=== PATIENT | female | born 1985 | race Caucasian/White ===

== ENCOUNTER 2021-07-23 00:13 | Day surgery (SDC) | payer OTHER, SELFPAY ==
[2021-07-10 14:52] VITALS: BMI 24.0
[2021-07-23 10:15] VITALS: BP 123/81; PULSE 113; RESP 20; TEMP 36.3; O2SAT 99
--- NOTE | 2021-07-23 10:20 | WPDANESEPPF ---
Anes - Initial Pre Proc Eval Procedure: Operation Date: 07/23/21 11:30 Proposed Procedures p Colonoscopy - Preston Bellamy MD Date/Time: 07/23/21 10:20 Surgeon: Preston Bellamy MD Pre Op Diagnosis: abdominal pain Patient Data Age: 35 Gender: F Height: 1.75 m Weight: 70.8 kg Last Vital Signs Temp 36.3 C L 07/23/21 10:15 Pulse 113 H 07/23/21 10:15 Resp 20 07/23/21 10:15 BP 123/81 07/23/21 10:15 Pulse Ox 99 07/23/21 10:15 Allergies Allergy/AdvReac Type Severity Reaction Status Date / Time No Known Allergies Allergy Verified 07/23/21 10:11 Home Medications Medication Instructions Recorded Confirmed Type venlafaxine 1 mg PO DAILY 07/10/21 07/10/21 History Patient hx anesthesia problems: none Family hx anesthesia problems: none Results Review: All pre-operative results and documents have been reviewed as part of the pre-operative evaluation. [facility] Past Medical History Medical History Anxiety Blood in stool Colitis IBS (irritable bowel syndrome) Mucus in stool Surgical History Surgical History (Updated 07/23/21 @ 10:20 by Adalberto Gonsalez MD) H/O colonoscopy Hx of tonsillectomy Social History Social History Smoking status: Never smoker Alcohol intake: never Alcohol use details: social Substance use: current Substance use type: marijuana Other substance usage details: VAPES MARIJUANA Living arrangements: with family Spiritual care concerns: No Anes - Eval Final PreProcedure Day of Procedure 07/23/21 10:20 Patient weight: normal Heart: regular rate and rhythm Lungs: clear to auscultation Airway: Mallampati scale class II Neurological: alert and oriented Last oral intake: >/= 8 hours ASA classification: II Emergent: no Anesthetic plan: proceed Anesthesia type and monitoring: general GIVS and standard monitoring Results Review: All pre-operative results and documents have been reviewed as part of the pre-operative evaluation. Informed Consent: The patient's anesthetic plan and its attendant risks and benefits were discussed with the patient/family/POA. Questions were solicited and answers provided to the satisfaction of the patient/family/POA.
[2021-07-23] MEDS: LACTATED RINGERS 1,000 ML 150 ML IV CONT (10:26)
--- NOTE | 2021-07-23 10:54 | PM.HPGS ---
History of Present Illness History of Present Illness Consent: Risks, benefits, and alternatives have been discussed and questions answered. Patient agrees to proceed with procedure. Chief complaint: abdominal pain Narrative: Karen Reynoso is a 35 year old female with abdominal discomfort and mucus in stool, had cecal ulcer in 2009 Review of Systems Constitutional: Constitutional: Denies headache(s) and Denies weakness Eyes: Eyes: Denies blurry vision ENT: Reports Normal hearing present, Denies headache(s) and Denies neck pain Cardiovascular: Cardiovascular: Denies chest pain and Denies dyspnea Respiratory: Respiratory: Denies dyspnea Gastrointestinal: Gastrointestinal: Reports no additional gastrointestinal complaints Genitourinary: Genitourinary: Denies dysuria Musculoskeletal: Musculoskeletal: Denies neck pain Integumentary/Breasts: Skin/Breast: Denies dry skin Neurologic: Reports Normal hearing present, Denies headache(s) and Denies weakness Psychiatric: Psychiatric: Denies anxiety Endocrine: Endocrine: Denies change in body appearance Hematologic/Lymphatic: Hematologic/Lymphatic: Denies easy bleeding Allergic/Immunologic: Allergic/Immunologic: Denies urticaria PMFSH Past Medical History Medical History (Updated 07/23/21 @ 10:54 by Preston Bellamy MD) Anxiety Blood in stool Colitis IBS (irritable bowel syndrome) Mucus in stool Surgical History Surgical History (Updated 07/23/21 @ 10:20 by Adalberto Gonsalez MD) H/O colonoscopy Hx of tonsillectomy Social History Social History Smoking status: Never smoker Alcohol intake: never Alcohol use details: social Substance use: current Substance use type: marijuana Other substance usage details: VAPES MARIJUANA Living arrangements: with family Spiritual care concerns: No Meds Home Medications and Allergies Home Medications Medication Instructions Recorded Confirmed Type venlafaxine 1 mg PO DAILY 07/10/21 07/10/21 History Allergies Allergy/AdvReac Type Severity Reaction Status Date / Time No Known Allergies Allergy Verified 07/23/21 10:11 Vital Signs Vital Signs - 24 hr 07/23/21 10:15 Temperature 97.4 F L Pulse Rate 113 H Respiratory Rate 20 Blood Pressure 123/81 Pulse Oximetry 99 Exam Const: General: comfortable and no acute distress HENMT: General nose exam: Normal nares present Eyes: General: appearance normal, both eyes and all related structures Neck: Neck: no JVD Resp: Auscultation: clear to auscultation bilaterally Cardio: Rate: regular rate Rhythm: regular rhythm GI: Inspection: non-distended GI Palp: Yes Soft to palpation Skin: General skin exam: normal color Neuro: General: gait normal Speech: normal speech Extrem: General: normal to inspection Psych: Mental Status: mental status grossly normal Assessment and Plan Assessment and plan (1) Mucus in stool: Code(s): R19.5 - Other fecal abnormalities Status: Acute Assessment and Plan: will assess with colonoscopy, consider to get random colon bx (2) IBS (irritable bowel syndrome): Code(s): K58.9 - Irritable bowel syndrome without diarrhea Status: Acute
[2021-07-23 11:12] VITALS: BP 88/61; PULSE 82; RESP 13; O2SAT 98
[2021-07-23 11:22] VITALS: BP 88/63; PULSE 93; RESP 21; O2SAT 100
[2021-07-23 11:32] VITALS: BP 103/73; PULSE 76; RESP 24; O2SAT 100
== END 2021-07-23 11:52 | disposition home or self-care (01) ==
PROVIDERS: PCP Family Medicine; Visit Provider Internal Medicine Gastroenterology
PROC: 0DJD8ZZ Inspection of Lower Intestinal Tract, Via Natural or Artificial Opening Endoscopic (ICD-10-PCS; CPT 45378; principal; 2021-07-23 11:30)
DX: R10.30 Lower abdominal pain, unspecified (principal); R19.5 Other fecal abnormalities; K63.89 Other specified diseases of intestine; K58.9 Irritable bowel syndrome, unspecified; F41.9 Anxiety disorder, unspecified; F12.90 Cannabis use, unspecified, uncomplicated
CPT/HCPCS: 45380; 88305; J2704; J7120

== ENCOUNTER 2022-10-07 08:33 | Emergency (ER) | payer OTHER, SELFPAY ==
[2022-10-07 08:48] VITALS: BP 119/86; PULSE 99; RESP 18; TEMP 36.7; O2SAT 99
[2022-10-07 09:10] LABS: Appearance Urine Clear (Clear); Bacteria Urine None Seen /hpf; Bilirubin Urine Negative (Negative); Blood Urine 1+ (Negative); Color Urine Yellow (Yellow); Glucose Urine UA Negative (Negative); Ketones Urine Negative (Negative); Leukocyte Esterase Ur Negative LEU/UL (Negative); Nitrate Urine Negative (Negative); Non Pathogenic Casts 0-2; Protein Urine Negative (Negative); Squamous Epithelial Cell Urine None seen /hpf (Few); Urobilinogen Urine 0.2 mg/dL (<2.0); WBC Urine 0-5 /hpf; pH Urine 5.5 (5.0-9.0)
[2022-10-07 09:12] LABS: Add Urine Microscopic? YES
[2022-10-07 09:16] LABS: Alanine Aminotransferase 15 U/L (6-35); Albumin Level 4.3 g/dL (3.5-5.1); Alkaline Phosphatase 59 U/L (38-126); Anion Gap 7 mmol/L (8-16); Aspartate Amino Transferase 25 U/L (14-36); Bilirubin,Total 2.3 mg/dL (0.2-1.3); Blood Urea Nitrogen 8 mg/dL (7-17); Calcium 8.8 mg/dL (8.4-10.2); Carbon Dioxide 26 mmol/L (22-30); Chloride 103 mmol/L (98-107); Estimated CRCL calculation 101 ml/min; Estimated Glomerular Filt Rate > 60; Glucose 102 mg/dL (65-110); Potassium 3.7 mmol/L (3.4-5.0); Sodium 136 mmol/L (137-145)
[2022-10-07 09:25] LABS: Basophils Percent Auto 0.4 % (0.2-1.2); Eosinophils Percent Auto 0.4 % (0-4.4); Hematocrit 39.8 % (37.0-47.0); Hemoglobin 12.9 g/dL (12.0-15.0); Immature Granulocyte Absolute 0.01 K/mm3 (0.00-0.031); Immature Granulocyte Percent A 0.1 % (0-0.5); Lymphocytes Absolute Auto 0.76 K/mm3 (0.9-3.2); Lymphocytes Percent Auto 10.3 % (18.3-44.2); Mean Corpuscular HGB Conc 32.4 g/dl (32-36); Mean Corpuscular Hemoglobin 29.4 pg (26-34); Mean Corpuscular Volume 90.7 fl (80-100); Mean Platelet Volume 9.9 fl (7.4-10.4); Monocytes Absolute Auto 0.3 K/mm3 (0.1-0.6); Monocytes Percent Auto 3.8 % (2.6-8.5); Neutrophils Absolute Auto 6.2 K/mm3 (1.3-6.7); Platelet Count Result 219 k/mm3 (150-375); Red Blood Count 4.39 M/mm3 (4.2-5.4); Red Cell Distribution Width 13.5 % (11.5-14.5); White Blood Count 7.4 K/mm3 (4.5-10.0)
--- NOTE | 2022-10-07 10:27 | ED.GENADULT ---
HPI - General Adult General Chief complaint: Unspecified Stated complaint: diarrhea, chills, abdominal pain Time Seen by Provider: 10/07/22 08:38 History of Present Illness HPI narrative: Patient is a 36-year-old female who presents ER with 2 concerns. First concern is 5 days ago patient went on a cruise and removed a tampon and it shredded. She believes there is some retained tampon within her vagina. She has no vaginal bleeding or vaginal discharge. No pelvic pain. No dysuria or urinary frequency or urgency. Additionally patient began having diarrhea today that has caused her to be incontinent of the stool. There is no blood in the stool. No fevers or chills or sweats. No abdominal pain but will get some cramping prior to going to the bathroom. 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 Related Data Home Medications Medication Instructions Recorded Confirmed venlafaxine 75 mg capsule,extended 1 mg PO DAILY 07/10/21 07/10/21 release 24 hr Allergies Allergy/AdvReac Type Severity Reaction Status Date / Time No Known Allergies Allergy Verified 10/07/22 08:52 Review of Systems Review of Systems: All systems reviewed & are unremarkable except as noted in HPI and below Constitutional: Constitutional: Denies chills and Denies fever(s) Gastrointestinal: Gastrointestinal: Denies abdominal pain, Reports GI cramping, Reports diarrhea, Denies nausea and Denies vomiting Genitourinary: Genitourinary: Denies abnormal vaginal bleeding, Denies nocturia, Denies dysuria, Denies pelvic pain, Denies vaginal discharge and Denies vaginal odor PMFSH Past Medical History Medical History (Updated 10/07/22 @ 10:28 by Rigoberto Baer MD) Anxiety Blood in stool Colitis IBS (irritable bowel syndrome) Mucus in stool Surgical History Surgical History (Updated 07/23/21 @ 10:20 by Adalberto Gonsalez MD) H/O colonoscopy Hx of tonsillectomy Social History Social History Smoking status: Never smoker Alcohol intake: never Alcohol use details: social Substance use: current Substance use type: marijuana Other substance usage details: VAPES MARIJUANA Living arrangements: with family Spiritual care concerns: No Exam Narrative: GENERAL: Well-appearing, well-nourished, and in no acute distress. HEAD: Normocephalic, atraumatic. CHEST: Clear to auscultation. No respiratory distress. HEART: Regular rate and rhythm. Normal peripheral pulses. ABDOMEN: Soft, nontender, nondistended. : Normal external genitalia, cervix normal appearance, no retained foreign body, scant physiologic discharge no vaginal bleeding. EXTREMITIES: Normal range of motion. No edema. SKIN: Warm, dry, no rash. NEURO: Alert and oriented x3. PSYCH: Normal mood and affect. Course Course Emergency Course: Patient resting comfortably. No retained foreign body. Discussed conservative treatment plan and patient verbalized understanding. Vital Signs Vital signs: Vital Signs Temperature 98.1 F 10/07/22 08:48 Pulse Rate 99 10/07/22 08:48 Respiratory Rate 18 10/07/22 08:48 Blood Pressure 119/86 10/07/22 08:48 Pulse Oximetry 99 10/07/22 08:48 Oxygen Delivery Room Air 10/07/22 08:48 Temperature 98.1 F 10/07/22 08:48 Pulse Rate 90 10/07/22 10:37 Respiratory Rate 16 10/07/22 10:37 Blood Pressure 129/74 10/07/22 10:37 Pulse Oximetry 97 10/07/22 10:37 Oxygen Delivery Room Air 10/07/22 08:48 Medical Decision Making Vital Signs Vital Signs: Vital Signs Temperature 98.1 F 10/07/22 08:48 Pulse Rate 99 10/07/22 08:48 Respiratory Rate 18 10/07/22 08:48 Blood Pressure 119/86 10/07/22 08:48 Pulse Oximetry 99 10/07/22 08:48 Oxygen Delivery Room Air 10/07/22 08:48 Temperature 98.1 F 10/07/22 08:48 Pulse Rate 90 10/07/22 10:37 Respiratory Rate 16 10/07/22 10:37 Blood Pressure 129/74
[2022-10-07 10:37] VITALS: BP 129/74; PULSE 90; RESP 16; O2SAT 97
== END 2022-10-07 10:39 | disposition home or self-care (01) ==
PROVIDERS: Emergency Provider Emergency Medicine; PCP Family Medicine
DX: K52.9 Noninfective gastroenteritis and colitis, unspecified (principal); K58.9 Irritable bowel syndrome, unspecified; F41.9 Anxiety disorder, unspecified
CPT/HCPCS: 36415; 80053; 81001; 81025; 85025; 99284